=== PATIENT | male | born 1995 | race African-American/Black ===

== ENCOUNTER 2019-05-29 22:37 | Emergency (ER) | payer OTHER ==
[~2019-05-29] VITALS: Ht 180.3 cm; Wt 81.6 kg
[2019-05-29 22:46] VITALS: BP 132/69
[2019-05-29] MEDS ORDERED: AMOX1TAB61 PO (23:10)
--- NOTE | 2019-05-29 23:11 | PHYS DOC ---
Adult General Chief Complaint Chief Complaint: ANIMAL BITE HPI HPI Patient is a 23 year old AA male who presents to the emergency department, accompanied by his family, with complaints of redness, warmth, and pus at the site of a dog bite on his right ankle. Patient states he was walking home on Thursday, May 27, 2019 when a dog that was wearing tags bit him. He denies any abnormal behavior from the dog however states that the dog was not captured by animal control and he does not know who the dog belonged to. Pt rates his pain a 9 out of 10 on the pain scale, no alleviating factors, palpation of the area increases the pain. ROS Patient denies any fever, cough, shortness of breath, numbness, or tingling of the affected extremity. He denies any decreased range of motion of his right ankle. Patient reports that he has been able to ambulate on the affected extremity without problem. All other ROS is neg unless otherwise noted in HPI. (DILIP JASSO APRN) Review of Systems Review of Systems See Above (DILIP JASSO APRN) Current Medications Current Medications Current Medications Medications (Trade) Dose Ordered Sig/Herman Start Time Stop Time Status Last Admin Dose Admin Diphtheria/ Tetanus/Acell Pertussis (Boostrix) 0.5 ml ONCE ONCE 05/29/19 23:30 05/29/19 23:31 DC 05/29/19 23:30 0.5 ML Neomycin/ Polymyxin/ Bacitracin (Triple Antibiotic Ointment) 1 pkt 1X ONCE 05/29/19 23:30 05/29/19 23:31 DC 05/29/19 23:30 1 PKT (FELICE GARSIA DO) Allergies Allergies Allergies Coded Allergies Type Severity Reaction Last Updated Verified No Known Drug Allergies 05/29/19 No (FELICE GARSIA DO) Physical Exam Physical Exam See Above Constitutional: Well developed, well nourished, no acute distress, non-toxic appearance. [] HENT: Normocephalic, atraumatic, bilateral external ears normal, nose normal. [] Eyes: conjunctiva normal, no discharge. [] Neck: Normal range of motion, no stridor. [] Cardiovascular:Heart rate regular rhythm, Lungs & Thorax: Respirations even and unlabored, no retractions, no respiratory distress Skin: Warm, dry; erythema and warmth noted to right medial ankle with 2 cm infected area that is draining pus, there is no streaking up the leg Extremities: Right medial ankle TTP, no cyanosis, no clubbing, ROM intact, 1+ edema. [] Neurologic: Alert and oriented X 3, normal motor function, normal sensory function, no focal deficits noted. [] Psychologic: Affect normal, judgement normal, mood normal. [] (DILIP JASSO APRN) Current Patient Data Vital Signs Vital Signs Date Time Temp Pulse Resp B/P (MAP) Pulse Ox O2 Delivery O2 Flow Rate FiO2 05/29/19 22:46 98.0 85 16 132/69 (90) 98 Room Air 98.0 (FELICE GARSIA DO) EKG EKG [] (DILIP JASSO APRN) Radiology/Procedures Radiology/Procedures [] (DILIP JASSO APRN) Course & Med Decision Making Course & Med Decision Making Pertinent Labs and Imaging studies reviewed. (See chart for details) dx: Infected dog bite Patient's tetanus was updated as patient was unsure of his last tetanus immunization. Prescription for Augmentin 875 mg tablets was written 1 by mouth twice a day �7 days. Patient was instructed to return to the emergency room if he develops a fever, increased redness, or increased pain. Otherwise follow-up with primary care doctor in 1-2 days. Patient verbalized an understanding of home care, medications, follow-up, and return to ED instructions and was in agreement with the plan of care. [] (DILIP JASSO APRN) Dragon Disclaimer Dragon Disclaimer This electronic medical record was generated, in whole or in part, using a voice recognition dictation system. (DILIP JASSO APRN) Departure Departure Impression: Primary Impression: Dog bite of ankle Additional Impression: Need for Tdap vaccination Disposition: 01 HOME, SELF-CARE Condition: STABLE Referrals: NO PCP (PCP) Patient Instructions: Animal Bite, [id number] Additional Instructions: Fill the prescription and use as directed. Tylenol or ibuprofen as needed for pain. Follow up with your primary care doctor in 1-2 days. Return to the ER if symptoms worsen or you develop a fever, increased pain, or increased redness. Scripts Amoxicillin/Potassium Clav (AUGMENTIN 875-125 TABLET) 1 Each Tablet 1 TAB PO BID, #14 TAB 0 Refills Prov: DILIP JASSO APRN 05/29/19 Attending Signature Attending Signature I have reviewed the PA/HOSPITAL RECEIVING CLERK's note and plan of care. I was available for consultation as needed during the patient's visit in the emergency department. I agree with the clinical impression, plan, and disposition. (FELICE GARSIA DO) Problem Qualifiers Primary Impression: Dog bite of ankle Encounter type: initial encounter Laterality: right Qualified Codes: S91.051A - Open bite, right ankle, initial encounter; W54.0XXA - Bitten by dog, initial encounter DILIP JASSO APRN May 29, 2019 23:11 FELICE GARSIA DO Jun 02, 2019 10:29
[2019-05-29] MEDS ORDERED: DIPHTH,PERTUSS(ACELL),TET TOX 0.5 ML DISP.SYRIN. VAX IM ONE (23:30)
[2019-05-29] MEDS ORDERED: NEOMY/BACITR/POLYMYXIN OINT PACKET. TP ONE (23:30)
== END 2019-05-29 23:32 | disposition home or self-care (01) ==
LOC: ER 22:37
DX: S91.051A Open bite, right ankle, initial encounter (principal); L08.9 Local infection of the skin and subcutaneous tissue, unspecified; W54.0XXA Bitten by dog, initial encounter; Y93.01 Activity, walking, marching and hiking; Y92.89 Other specified places as the place of occurrence of the external cause; Y99.8 Other external cause status
CPT/HCPCS: 90471; 90715; 99283

== ENCOUNTER 2020-03-11 23:05 | Emergency (ER) | payer OTHER ==
[~2020-03-11] VITALS: Ht 180.3 cm; Wt 90.9 kg
[~2020-03-11 23:05] MED LIST: AMOX1TAB61 PO
[2020-03-11] MEDS ORDERED: methylPREDNISolone SOD SUCC PF 125 MG/2 ML VIAL. IV ONE (23:45)
[2020-03-11] MEDS ORDERED: valACYclovir 500 MG TABLET. PO ONE (23:45)
[2020-03-11] MEDS ORDERED: VALA10005 PO (23:58)
[2020-03-11] MEDS ORDERED: METH4TAB2 PO (23:58)
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
[2020-03-12 00:05] VITALS: BP 110/65
== END 2020-03-12 00:08 | disposition home or self-care (01) ==
LOC: ER 23:05
DX: G51.0 Bell's palsy (principal); F31.9 Bipolar disorder, unspecified; F17.200 Nicotine dependence, unspecified, uncomplicated
CPT/HCPCS: 96374; 99283; J2930